=== PATIENT | female | born 1960 | race Caucasian/White ===

== ENCOUNTER 2019-01-17 11:48 | Emergency (ER) | payer SELFPAY ==
[~2019-01-17] VITALS: Ht 167.6 cm; Wt 80.7 kg
[2019-01-17 12:01] VITALS: BP 128/71; Ht 167.6 cm; Wt 80.7 kg
== END 2019-01-17 13:24 | disposition home or self-care (01) ==
LOC: ED 11:48
DX: S70.01XA Contusion of right hip, initial encounter (principal); W10.9XXA Fall (on) (from) unspecified stairs and steps, initial encounter; Y93.89 Activity, other specified; Y92.89 Other specified places as the place of occurrence of the external cause; Y99.8 Other external cause status
CPT/HCPCS: J3010

== ENCOUNTER 2019-01-22 19:28 | Emergency (ER) | payer SELFPAY ==
[~2019-01-22] VITALS: Ht 167.6 cm; Wt 81.6 kg
[2019-01-22 20:08] VITALS: Ht 167.6 cm; Wt 81.6 kg
[2019-01-22 23:14] VITALS: BP 118/75
== END 2019-01-22 23:14 | disposition home or self-care (01) ==
LOC: ED 19:28
DX: M54.41 Lumbago with sciatica, right side (principal); J45.909 Unspecified asthma, uncomplicated; F41.9 Anxiety disorder, unspecified
CPT/HCPCS: J1885; J2060